=== PATIENT | female | born 1955 | race Caucasian/White ===

== ENCOUNTER 2018-05-15 09:42 | Outpatient (CLI) | payer BC ==
[~2018-05-15] VITALS: Ht 162.6 cm; Wt 53.7 kg
[~2018-05-15 09:42] MED LIST: ALBUTEROL MDI; ALPR0.5T72 PO; ALPRAZOLAM; AMIL5TAB3 PO; AMILORIDE; ASP81TEC PO; ASPIRIN; CALC-80 PO; CALCIUM+D; COUMADIN; DIGO125T; DIGO250T PO; GERITOL COMPLETE; HYDROXYCHLOROQUINE PO; LOVENOX; MULT-608 PO; WRF10T PO; WRF5T PO
[2018-05-15] MEDS ORDERED: ASPI-586 PO (10:18)
[2018-05-15] MEDS ORDERED: CA C1TAB75 PO (10:18)
[2018-05-15] MEDS ORDERED: WARF2TAB PO (10:18)
[2018-05-15] MEDS ORDERED: OXYC1TAB16 PO (10:18)
[2018-05-15] MEDS ORDERED: WARF10TA PO ×2 (10:18)
[2018-05-15] MEDS ORDERED: MULT-351 PO (10:18)
[2018-05-15] MEDS ORDERED: ALPR0.5T7 PO (10:18)
[2018-05-15] MEDS ORDERED: AMIL5TAB3 PO (10:18)
[2018-05-15] MEDS ORDERED: ENOX60DI12 SQ (10:19)
[2018-05-15 10:29] VITALS: BP 112/77
== END 2018-05-15 11:21 | disposition home or self-care (01) ==
LOC: PREOP 09:42
PROVIDERS: ATTEND Orthopaedic Surgery
DX: Z01.818 Encounter for other preprocedural examination (principal)
CPT/HCPCS: 87081

== ENCOUNTER 2018-05-22 09:30 | Inpatient (IN) | payer BC, OTHER ==
--- NOTE | 2018-05-15 15:06 | NUR ---
CALLED AUDREY NEGRETE FOR A LIST OF RECENTLY FILLED MEDICATIONS. I CALLED AND VERIFIED THE COUMADIN DOSE WITH THE PATIENT. AUDREY FILLED: 05-12-18 AMILORIDE 5MG DAILY #30 05-11-18 WARFARIN 10MG DAILY #90 05-04-18 XANAX 0.5MG QID #112 04-18-18 LOVENOX 60MG #20 .52ML Q12 HOURS, START 5 DAYS PRIOR TO SURGERY, HOLD 24 HOURS PRIOR TO SURGERY, RESUME POST UP UNTIL INR REACHES 2.0 04-17-18 PERCOCET 7.5-325 Q6H PRN #112 04-06-18 COUMADIN 2MG 12MG TUTHSA, 14 MG SUMOWEFR (STATES HE DOSE HAS CHANGED TO 10MG ALL DAYS EXCEPT 3 DAYS A WEEK 12 MG. ALSO REPORTED IN PREOP IS ASPIRIN 81MG DAILY, CALCIUM +D CHEW DAILY, MTV DAILY
[2018-05-22] VITALS (8 sets, daily range): BP systolic 74–123; BP diastolic 50–89
[~2018-05-22] VITALS: Ht 162.6 cm; Wt 51.5 kg
[~2018-05-22 09:30] MED LIST changes: +ALPR0.5T7 PO; +ASPI-586 PO; +CA C1TAB75 PO; +ENOX60DI12 SQ; +MULT-351 PO; +OXYC1TAB16 PO; +WARF10TA PO; +WARF2TAB PO
--- OUTSIDE RECORDS SUMMARY | 2018-05-22 10:42 | XMS REPORT | Continuity of Care Document ---
Author Author [facility] Organization [facility] Address Unknown Phone Unavailable Allergies Active Description Code Type Severity Reaction Onset Reported/Identified Relationship to Patient Clinical Status Yes amlodipine [id number] Drug Allergy Unknown "FLU-LIKE SYMPT 12/26/2006 Yes atenolol [id number] Drug Allergy Unknown N/A 12/26/2006 Yes captopril [id number] Drug Allergy Unknown N/A 12/26/2006 Yes carvedilol [id number] Drug Allergy Unknown N/A 12/26/2006 Yes diltiazem [id number] Drug Allergy Unknown N/A 12/26/2006 Yes enalaprilat [id number] Drug Allergy Unknown N/A 12/26/2006 Yes felodipine [id number] Drug Allergy Unknown N/A 12/26/2006 Yes guanfacine [id number] Drug Allergy Unknown N/A 12/26/2006 Yes hydralazine [id number] Drug Allergy Unknown SEVERE BONE CARRINGTON 12/26/2006 Yes hydrochlorothiazide [id number] Drug Allergy Unknown ITCHING, HEART Yes isradipine [id number] Drug Allergy Unknown N/A 12/26/2006 Yes labetalol [id number] Drug Allergy Unknown N/A 12/26/2006 Yes lisinopril [id number] Drug Allergy Unknown N/A 12/26/2006 Yes lorazepam [id number] Drug Allergy Unknown SEVERE DEPRESSI 12/26/2006 Yes losartan [id number] Drug Allergy Unknown N/A 12/26/2006 Yes metoprolol [id number] Drug Allergy Unknown N/A 12/26/2006 Yes moexipril [id number] Drug Allergy Unknown ITCHING, HEART 12/26/2006 Yes nifedipine [id number] Drug Allergy Unknown N/A 12/26/2006 Yes propafenone [id number] Drug Allergy Unknown CHEST PAIN 12/26/2006 Yes ramipril [id number] Drug Allergy Unknown N/A 12/26/2006 Yes spironolactone [id number] Drug Allergy Unknown BONE PAIN 12/26/2006 Yes verapamil [id number] Drug Allergy Unknown N/A 12/26/2006 Yes furosemide [id number] Drug Allergy Mild ITCHING 05/15/2018 Yes monosodium glutamate [id number] Drug Allergy Mild HEADACHE 05/15/2018 Yes TABBY Inhibitors [id number] Drug Allergy Unknown N/A 05/15/2018 Yes adhesive tape [id number] Drug Allergy Unknown N/A 05/15/2018 Yes apixaban [id number] Drug Allergy Unknown N/A 05/15/2018 Yes ciprofloxacin [id number] Drug Allergy Unknown N/A 05/15/2018 Yes clonidine [id number] Drug Allergy Unknown N/A 05/15/2018 Yes isosorbide [id number] Drug Allergy Unknown N/A 05/15/2018 Yes nitroglycerin [id number] Drug Allergy Unknown N/A 05/15/2018 Yes rivaroxaban [id number] Drug Allergy Unknown N/A 05/15/2018 Yes vitamin K2 [id number] Drug Allergy Unknown N/A 05/15/2018 Medications There is no data. Problems Date Dx Coded Attending Type Code Diagnosis Diagnosed By 01/12/2017 ASHLEY GONZALEZ WORKING R07.89 Other chest pain Procedures There is no data. Results Test Result Range Methicillin resistant Staphylococcus aureus (MRSA) screening culture - 10:45 Methicillin resistant Staphylococcus aureus (MRSA) screening culture NEG NRG Encounters ACCT No. Visit Date/Time Discharge Status Pt. Type Provider Facility Loc./Unit Complaint [id number] 01/12/2017 08:37:50 01/12/2017 23:59:59 CLS Outpatient ASHLEY GONZALEZ [facility] FCRCL [id number] 05/15/2018 09:42:00 05/15/2018 11:21:00 DIS Outpatient ISAC GONZALEZ DO [facility] PREOP L3-4 TLIF WITH LEFT POSTERIOR [id number] 05/22/2018 09:30:00 ACT Preadmit ISAC GONZALEZ DO [facility] SURG RCR STENOSIS [id number] 04/03/2018 14:20:00 04/03/2018 23:59:59 CLS Outpatient Zahida Fraser
[2018-05-22] MEDS ORDERED: BACITRACIN 100,000 UNIT/NS 1000 ML POUR BOTTLE IR ONE ×2 (10:45)
[2018-05-22] MEDS ORDERED: CATHETER FLUSH 10 ML SYR IV PRN (11:00)
[2018-05-22] MEDS ORDERED: ceFAZolin 2 GM IV Premixed 50 ML IV ONE (11:00)
[2018-05-22] MEDS: LACTATED RINGERS 1,000 ML IV PRN ×2 (11:15→14:05)
[2018-05-22 11:17] LABS: BASOPHILS % (AUTO) 0 % (0-10); EOSINOPHILS # (AUTO) 0.2 10^3/uL (0.0-0.3); EOSINOPHILS % (AUTO) 3 % (0-10); HEMATOCRIT 39 % (35-52); HEMOGLOBIN 13.1 G/DL (11.5-16.0); LYMPHOCYTES # (AUTO) 1.3 X 10^3 (1.0-4.0); LYMPHOCYTES % (AUTO) 30 % (12-44); MEAN CORPUSCULAR HEMOGLOBIN 32 PG (25-34); MEAN CORPUSCULAR HGB CONC 34 G/DL (32-36); MEAN CORPUSCULAR VOLUME 94 FL (80-99); MEAN PLATELET VOLUME 11.5 FL (7.4-10.4); MONOCYTES # (AUTO) 0.5 X 10^3 (0.0-1.0); MONOCYTES % (AUTO) 11 % (0-12); NEUTROPHILS # (AUTO) 2.5 X 10^3 (1.8-7.8); NEUTROPHILS % (AUTO) 56 % (42-75); PLATELET COUNT 139 10^3/uL (130-400); RED CELL DISTRIBUTION WIDTH 13.4 % (10.0-14.5); WHITE BLOOD COUNT 4.5 10^3/uL (4.3-11.0)
[2018-05-22] MEDS ORDERED: ONDANSETRON 4 MG/2 ML (SDV) Z0FRAN ONE ×2 (11:21→15:36)
[2018-05-22] MEDS ORDERED: FAMOTIDINE 20MG/2ML IV (PEPCID) ONE (11:22)
[2018-05-22 11:27] LABS: PROTHROMBIN TIME PATIENT 12.6 SEC (12.2-14.7)
[2018-05-22] MEDS ORDERED: FAMOTIDINE 20MG/2ML IV (PEPCID) IV ONE (11:30)
[2018-05-22] MEDS ORDERED: ONDANSETRON 4 MG/2 ML (SDV) Z0FRAN IV ONE (11:30)
[2018-05-22] MEDS ORDERED: BUP/EPI 0.5% 1:200,000 (SENSORCAINE) 30 ML VIAL ONE (11:38)
[2018-05-22] MEDS ORDERED: BACITRACIN OINTMENT 28 GM TUBE ONE (11:38)
[2018-05-22] MEDS ORDERED: VANCOMYCIN 1000 MG/VIAL ONE (11:38)
[2018-05-22] MEDS ORDERED: LIDOCAINE PF 2% 5 ML (XYLOCAINE) VIAL ONE (11:51)
[2018-05-22] MEDS ORDERED: SEVOFLURANE (ULTANE) 15 ML INHAL SOLN ONE ×3 (11:51→15:07)
[2018-05-22] MEDS ORDERED: ROCURONIUM 10 MG/ML 5 ML SYRINGE IV ONE (11:51)
[2018-05-22] MEDS ORDERED: proPOfol 200 MG/20 ML (DIPRIVAN) VIAL IV ONE (11:51)
[2018-05-22] MEDS ORDERED: fentaNYL INJECTION 100 MCG/2 ML AMP ONE ×2 (11:53→14:03)
[2018-05-22] MEDS ORDERED: MIDAZOLAM 2 MG/2 ML (VERSED) VIAL ONE (11:53)
[2018-05-22] MEDS ORDERED: DEXMEDETOMIDINE 200 MCG/2 ML (PRECEDEX) VIAL IV ONE (12:07)
[2018-05-22] MEDS ORDERED: NS (IVPB) 100 ML ONE (12:12)
[2018-05-22] MEDS ORDERED: PHENYLEPHRINE 100 MCG/ML 10 ML (ANESTHESIA) SYR ONE ×2 (13:38→15:06)
[2018-05-22] MEDS ORDERED: NEOSTIGMINE 1 MG/ML 5 ML SYRINGE ONE (14:06)
[2018-05-22] MEDS ORDERED: GLYCOPYRROLATE 0.2 MG/ML (ROBINUL) 2 ML VIAL ONE (14:06)
--- NOTE | 2018-05-22 14:40 | Diagnostic Imaging Report ---
Indication: Fluoroscopy during lumbar spine surgery. Fluoroscopy was provided in the OR during lumbar spine surgery. 46 seconds of fluoroscopy was utilized. A single image demonstrates surgical instruments and retractors with pedicles screws in the lower lumbar spine Impression: Fluoroscopy for lumbar spine surgery. Dictated by: Dictated on workstation # [id number]
[2018-05-22] MEDS ORDERED: ACETAMINOPHEN 325 MG TABLET PO PRN (15:00)
[2018-05-22] MEDS ORDERED: ONDANSETRON 4 MG/2 ML (SDV) Z0FRAN IV PRN (15:00)
[2018-05-22] MEDS ORDERED: BISACODYL 10 MG SUPP (DULCOLAX) PR PRN (15:00)
[2018-05-22] MEDS ORDERED: morphine INJ 10 MG/ML 1ML (SYR OR VIAL) ONE (15:13)
[2018-05-22] MEDS ORDERED: fentaNYL INJECTION 100 MCG/2 ML AMP IVP ONE (15:15)
[2018-05-22] MEDS ORDERED: ONDANSETRON 4 MG/2 ML (SDV) Z0FRAN IVP PRN (15:15)
[2018-05-22] MEDS ORDERED: morphine INJ 10 MG/ML 1ML (SYR OR VIAL) IVP ONE (15:15)
[2018-05-22] MEDS ORDERED: NS IV 1000 ML 1,000 ML ONE (16:10)
[2018-05-22] MEDS ORDERED: DEXAMETHASONE 4 MG/ML SDV (DECADRON) ONE (16:11)
[2018-05-22] MEDS ORDERED: METOCLOPRAMIDE INJ 10 MG/2 ML (REGLAN) IVP PRN (16:15)
[2018-05-22] MEDS ORDERED: NS IV 1000 ML 1,000 ML IV SCH (16:15)
[2018-05-22] MEDS ORDERED: DEXAMETHASONE 4 MG/ML SDV (DECADRON) IV ONE (16:15)
--- NOTE | 2018-05-22 17:26 | NUR ---
WILLI GONZALEZ admitted to room OR-1, with an admitting diagnosis of S/P LEFT LUMBAR TRANSFORAMINAL LUMBER INTERBODY FUSION , on 05/22/18 from [facility] via BED, accompanied by [facility] STAFF..WILLI GONZALEZ introduced to surroundings, call light, bed controls, phone, TV, temperature control, lights, meal times, smoking policy, visitor policy, side rail policy, bathrooms and showers. Patient Rights given to patient in the handbook.WILLI GONZALEZ verbalizes understanding that [facility] is not responsible for the loss or damage to any personal effects or valuables that are kept in the patients posession during their hospitalization.
--- NOTE | 2018-05-22 17:27 | NUR ---
[address]VA WITH DR GONZALEZ NOTIFIED OF PT'S LOW BLOOD PRESSURE 79/52 PULSE 75 NEW ORDERS RECEIVED TO START NORMAL SALINE AT 100ML/HR. PT ALSO C/O OF NAUSEA, ORDERS RECEIVED FOR DECADRON 4MG IV X 1 DOSE AND REGLAN 10 MG IV EVERY 6 HRS PRN PAIN. MEDICATIONS OVERRIDE PT NOT APPEARING ON FLOOR CENSUS.
[2018-05-22] MEDS: NS IV 1000 ML 1,000 ML IV SCH (17:54)
[2018-05-22] MEDS: fentaNYL INJECTION 100 MCG/2 ML AMP IVP PRN ×2 (18:08→21:43)
[2018-05-22] MEDS ORDERED: ARTIFICAL TEARS 0.4 ML UNIT DOSE (REFRESH PLUS) OS PRN (18:15)
[2018-05-22] MEDS: ceFAZolin INJECTION 1,000 MG in WATER (STERILE) FOR INJECTION 10 ML IV SCH (18:44)
[2018-05-22] MEDS: ALPRAZolam 0.5 MG (XANAX) TAB PO PRN (19:41)
[2018-05-22] MEDS: oxyCODONE/APAP 7.5-325 MG (PERCOCET 7.5) TABLET PO PRN (19:41)
[2018-05-22] MEDS: SENNOSIDES 8.6 MG (SENOKOT) TAB PO SCH (21:27)
[2018-05-22] MEDS: CYCLOBENZAPRINE 10 MG (FLEXERIL) TAB PO PRN (21:30)
[2018-05-23] VITALS (7 sets, daily range): BP systolic 84–109; BP diastolic 51–67
[2018-05-23] MEDS: oxyCODONE/APAP 7.5-325 MG (PERCOCET 7.5) TABLET PO PRN ×5 (01:34→18:58)
[2018-05-23] MEDS: fentaNYL INJECTION 100 MCG/2 ML AMP IVP PRN ×10 (01:34→21:37)
[2018-05-23] MEDS: NS IV 1000 ML 1,000 ML IV SCH ×3 (02:18→23:05)
[2018-05-23] MEDS: ceFAZolin INJECTION 1,000 MG in WATER (STERILE) FOR INJECTION 10 ML IV SCH ×2 (03:34→10:32)
[2018-05-23 05:22] LABS: MEAN PLATELET VOLUME 12.1 FL (7.4-10.4); RED CELL DISTRIBUTION WIDTH 13.2 % (10.0-14.5); WHITE BLOOD COUNT 9.1 10^3/uL (4.3-11.0)
[2018-05-23 05:25] LABS: HEMOGLOBIN 9.7 G/DL (11.5-16.0)
[2018-05-23 05:39] LABS: ALANINE AMINOTRANSFERASE 129 U/L (0-55); ALBUMIN 3.7 GM/DL (3.2-4.5); ALKALINE PHOSPHATASE 63 U/L (40-136); BILIRUBIN,TOTAL 0.2 MG/DL (0.1-1.0); BUN/CREATININE RATIO 12; CALCIUM 8.5 MG/DL (8.5-10.1); CARBON DIOXIDE 22 MMOL/L (21-32); CHLORIDE 110 MMOL/L (98-107); CREATININE SERUM 0.75 MG/DL (0.60-1.30); GFR ESTIMATED > 60; GLUCOSE 104 MG/DL (70-105); POTASSIUM 4.4 MMOL/L (3.6-5.0); SODIUM 138 MMOL/L (135-145); TOTAL PROTEIN 5.7 GM/DL (6.4-8.2)
--- NOTE | 2018-05-23 05:47 | NUR ---
CONTACTED DR GONZALEZ REGARDING PATIENT HGB FROM 13.1 YTD, TO 9.7 TODAY. HEMOVAC OUTPUT PREVIOUS SHIFT 150 CURRENT SHIFT 100. NO NEW ORDERS AT THIS TIME.
[2018-05-23] MEDS: SENNOSIDES 8.6 MG (SENOKOT) TAB PO SCH ×2 (08:24→21:36)
[2018-05-23] MEDS ORDERED: AMILORIDE HCL 5 MG PO SCH (09:00)
--- NOTE | 2018-05-23 09:02 | Diagnostic Imaging Report ---
INDICATION: Back pain. FINDINGS: There are postsurgical changes of an L4-5 fusion with posterior rods and screws. There is an intervertebral disc spacer at this level. The vertebral body heights are well-maintained. There is no spondylolysis or spondylolisthesis. Surgical drain is in place. IMPRESSION: Stable postsurgical changes of an L4-5 fusion as described. Dictated by: Dictated on workstation # [id number]
--- NOTE | 2018-05-23 09:13 | Consultation ---
HPI History of Present Illness: HPI/Chief Complaint CC: Medical management following spine surgery HPI: This is a 62yoWF patient of [facility] who sees a DRILL OPERATOR and also Dr Kramer at [facility] Hematology who has h/o hypercoagulable state with multiple PE/ DVT's in the past w/IVC in place from 2010 who presents following an uncomplicated spine surgery by Dr Beltran and I am consulted for hypotension. EBL was 500cc and BL in RODNEY drain is 180cc last night so we will give 1 liter NS IVF bolus and check H/H at 1300 and evaluate the need for transfusion. Patient is reporting pain but no dizziness or syncopal episode. Source: patient Exam Limitations: no limitations Date Seen 05/23/18 Attending Physician Jerson Beltran Jay L MD Referring Physician Date of Admission May 22, 2018 at 10:20 Home Medications & Allergies Home Medications Reviewed patient Home Medication Reconciliation performed by pharmacy medication reconciliations commercial tire service technician and/or nursing. Patients Allergies have been reviewed. Allergies Allergies Coded Allergies furosemide (Verified Allergy, Mild, ITCHING, 05/15/18) monosodium glutamate (Verified Allergy, Mild, HEADACHE, 05/15/18) TABBY Inhibitors (Verified Allergy, Unknown, 05/15/18) adhesive tape (Verified Allergy, Unknown, 05/15/18) apixaban (Verified Allergy, Unknown, 05/15/18) atenolol (Verified Allergy, Unknown, 12/26/06) captopril (Verified Allergy, Unknown, 12/26/06) carvedilol (Verified Allergy, Unknown, 12/26/06) ciprofloxacin (Verified Allergy, Unknown, 05/15/18) clonidine (Verified Allergy, Unknown, 05/15/18) diltiazem (Verified Allergy, Unknown, 12/26/06) enalaprilat (Verified Allergy, Unknown, 12/26/06) felodipine (Verified Allergy, Unknown, 12/26/06) guanfacine (Verified Allergy, Unknown, 12/26/06) hydrochlorothiazide (Verified Allergy, Unknown, ITCHING, HEART ARRYTHMIA, 25/09) isosorbide (Verified Allergy, Unknown, 05/15/18) isradipine (Verified Allergy, Unknown, 12/26/06) labetalol (Verified Allergy, Unknown, 12/26/06) lisinopril (Verified Allergy, Unknown, 12/26/06) losartan (Verified Allergy, Unknown, 12/26/06) metoprolol (Verified Allergy, Unknown, 12/26/06) moexipril (Verified Allergy, Unknown, ITCHING, HEART ARRYTHMIA, 12/26/06) nifedipine (Verified Allergy, Unknown, 12/26/06) nitroglycerin (Verified Allergy, Unknown, 05/15/18) propafenone (Verified Allergy, Unknown, CHEST PAIN, 12/26/06) ramipril (Verified Allergy, Unknown, 12/26/06) rivaroxaban (Verified Allergy, Unknown, 05/15/18) verapamil (Verified Allergy, Unknown, 12/26/06) vitamin K2 (Verified Allergy, Unknown, 05/15/18) amlodipine (Verified Adverse Reaction, Unknown, "FLU-LIKE SYMPTOMS--DR SAID NOT TO TAKE", 12/26/06) hydralazine (Verified Adverse Reaction, Unknown, SEVERE BONE PAIN, 12/26/06) lorazepam (Verified Adverse Reaction, Unknown, SEVERE DEPRESSION, 12/26/06) spironolactone (Verified Adverse Reaction, Unknown, BONE PAIN, 12/26/06) Past [id number] Hx Past Med/Social Hx: Reviewed Nursing Past Med/Soc Hx, Reviewed and Corrections made Patient Social History Marrital Status: single Employed/Student: unemployed Alcohol Use: Denies Use Recreational Drug Use: No Smoking Status: Never a Smoker Physical Abuse Screen: No Sexual Abuse: No Recent Foreign Travel: No Contact w/other who traveled: No Recent Hopitalizations: No Recent Infectious Disease Expo: No Immunizations Up To Date Date of Pneumonia Vaccine: Jun 08, 2016 Date of Influenza Vaccine: Dec 07, 2017 Seasonal Allergies Seasonal Allergies: Yes Past Medical History Respiratory: Pulmonary Embolism Cardiac: Deep Vein Thrombosis, High Cholesterol : No Reproductive: No Sexually Transmitted Disease: No HIV/AIDS: No Musculoskeletal: Chronic Back Pain Loss of Vision: Bilateral Hearing Impairment: Denies History of Blood Disorders: Yes (CLOTTING DISORDER) Adverse Reaction to Blood Bell: Yes (HAS HAD BLOOD WITH NO REACTION) Review of Systems Constitutional: see HPI, weakness EENTM: no symptoms reported Respiratory: no symptoms reported Cardiovascular: no symptoms reported Gastrointestinal: no symptoms reported Genitourinary: no symptoms reported Musculoskeletal: back pain Skin: no symptoms reported Psychiatric/Neurological: No Symptoms Reported All Other Systems Reviewed Negative Unless Noted: Yes Physical Exam Physical Exam Vital Signs Vital Signs - First Documented 05/22/18 10:20 Temp 97.0 Pulse 76 Resp 18 B/P (MAP) 123/89 Pulse Ox 100 O2 Delivery Room Air Capillary Refill : Height, Weight, BMI Height: 5'4.00" Weight: 113lbs. 8.0oz. 51.259636xc; 19.5 BMI Method: General Appearance: No Apparent Distress, WD/WN, Chronically ill, Thin Eyes: Bilateral Eye Normal Inspection, Bilateral Eye PERRL HEENT: PERRL/EOMI, Normal ENT Inspection, Pharynx Normal Neck: Full Range of Motion, Normal Inspection, Non Tender, Supple, Carotid Bruit Respiratory: Chest Non Tender, Lungs Clear, Normal Breath Sounds, No Accessory Muscle Use, No Respiratory Distress Cardiovascular: Regular Rate, Rhythm, No Edema, No Gallop, No JVD, No Murmur, Normal Peripheral Pulses Gastrointestinal: Normal Bowel Sounds, No Organomegaly, No Pulsatile Mass, Non Tender, Soft Back: Decreased Range of Motion Extremity: Normal Capillary Refill, Normal Inspection, Normal Range of Motion, Non Tender, No Calf Tenderness, No Pedal Edema Neurologic/Psychiatric: Alert, Oriented x3, No Motor/Sensory Deficits, Normal Mood/Affect Skin: Normal Color, Warm/Dry Lymphatic: No Adenopathy Results Results/Procedures Labs Laboratory Tests 05/22/18 11:03 05/23/18 05:15 Patient resulted labs reviewed. Assessment/Plan Assessment and Plan Assess & Plan/Chief Complaint Assessment: s/p uncomplicated spine surgery per Dr Beltran POD # 1 Hypotension due to hypovolemia Acute blood loss anemia Antiphospholipid hypercoagulable state maintained on Coumadin and has IVF filter placed in 2010 with h/o 3 PE's and DVT's even while on Coumadin Multiple med allergies Plan: IVF bolus 1 liter Check H/H at 1300 may need transfusion this afternoon if hypotension persists Pain control Anticoagulation per spine surgery Diagnosis/Problems Diagnosis/Problems (1) Hypotension Status: Acute Qualifiers: Hypotension type: hypotension due to hypovolemia Qualified Codes: I95.89 - Other hypotension; E86.1 - Hypovolemia (2) Lumbar spinal stenosis Status: Acute Qualifiers: Neurogenic claudication status: unspecified Qualified Codes: M48.061 - Spinal stenosis, lumbar region without neurogenic claudication (3) Acute blood loss anemia Status: Acute (4) Antiphospholipid antibody syndrome Status: Chronic (5) History of pulmonary embolus (PE) Status: Chronic (6) History of DVT (deep vein thrombosis) Status: Chronic (7) Presence of IVC filter Status: Chronic Clinical Quality Measures DVT/VTE Risk/Contraindication: Risk Factor Score Per Nursin RFS Level Per Nursing on Admit: 4+=Very High CAMRYN BRUCE DO May 23, 2018 09:13
[2018-05-23] MEDS ORDERED: NS IV 1000 ML 1,000 ML IV SCH (09:30)
--- NOTE | 2018-05-23 09:31 | Physical Therapy Evaluation ---
PT Evaluation-General Medical Diagnosis Admission Date May 22, 2018 at 10:20 Medical Diagnosis: stenosis Onset Date: May 22, 2018 Therapy Diagnosis Therapy Diagnosis: debility Height/Weight Height (Feet): 5 Height (Inches): 4.00 Weight (Pounds): 113 Weight (Ounces): 8.0 Precautions Precautions/Isolations: Standard Precautions Weight Bear Status Right Lower Extremity: Right Full Weight Bearing Left Lower Extremity: Left Full Weight Bearing Referral Physician: Devin Reason for Referral: Evaluation/Treatment Medical History Pertinent Medical History: Smoking Additional Medical History L5-S1 fusion prior Current History s/p Left lumbar transforaminal lumbar interbody fusion Reviewed History: Yes Social History Home: Single Level Current Living Status: Spouse Prior/Core FIM Prior Level of Function Therapy Code Descriptions/Definitions Functional [place] Measure: 0=Not Assessed/NA 4=Minimal Assistance 1=Total Assistance 5=Supervision or Setup 2=Maximal Assistance 6=Modified [place] 3=Moderate Assistance 7=Complete [place] Therapy Quality Codes: 6 Independent with activity with or without an assistive device 5 Patient requires set up or clean up by helper. Patient completes activity by themselves 4 Supervision or touching assist (CGA). Loda provide cues , steadying assist 3 The helper provides less than half the effort to complete the activity 2 The helper provides more than half the effort to complete the activity 1 Dependent. The helper does all the effort to complete an activity 7 Patient refused to complete or attempt activity 9 The patient did not perform the activity before the current illness or injury 88 Not attempted due to Medical conditions or safety concerns Functional Abilities and Goals: Independent: Patient completed the activities by him/herself, with or without an assistive device, with no assistance from a helper. Needed Some Help: Patient needed partial assistance from another person to complete activities. Dependent: A helper completed the activities for the patient. Unknown: Not Applicable: Bed Mobility: 7 Transfers (B,C,W/C) (FIM): 7 Gait: 7 Stairs: 7 Indoor Mobility (Ambulation): Independent Stairs: Independent Prior Devices Use: None PT Evaluation-Current Subjective Patient is very agreeable to participate with PT. Patient has her own back brace and dons it independently. Pain Numeric Pain Scale: 5-Moderate Pain Location: Lower Location Body Site: Back Pain Description: Acute Objective Patient Orientation: Normal For Age Problem Solving: Good Attachments: Drains, IV ROM/Strength ROM Lower Extremities bilateral LE WFL Strength Lower Extremities 5/5 grossly bilateral LE Integumentary/Posture Integumentary refer to nursing notes Bowel Incontinence: No Bladder Incontinence: No Posture WFL Neuromuscular (Tone, Coordination, Reflexes) grossly intact with all Sensory Vision: Wears Glasses Hearing: Functional Sensation Right Lower Extremit: Intact Sensation Left Lower Extremity: Intact Transfers Therapy Code Descriptions/Definitions Functional [place] Measure: 0=Not Assessed/NA 4=Minimal Assistance 1=Total Assistance 5=Supervision or Setup 2=Maximal Assistance 6=Modified [place] 3=Moderate Assistance 7=Complete [place] Transfers (B, C, W/C) (FIM): 6 Scootin Rollin Supine to/from Sit: 6 Sit to/from Stand: 6 log roll bed mobility to attain sitting EOB without difficulty Gait Mode of Locomotion: Walk Anticipated Mode of Locomotion: Walk Gait (FIM): 6 Distance (FIM): 3=150 ft Distance: 1000' Gait Level of Assist: 6 Gait Assistive Device: FWW Comments/Gait Description Patient has been instructed to ambulate PRN in hallway with or without use of FWW independently Balance Sitting Static: Normal Sitting Dynamic: Normal Standing Static: Normal Standing Dynamic: Normal Assessment/Needs 62 y.o. active female, is currently at independent to modified independent [facility] with all gross motor skills and does not require skilled therapy intervention. Patient has been instructed to ambulate PRN in hallway with or without use of FWW. RN notified. Rehab Potential: Good PT Plan Treatment/Plan Treatment Plan: Discontinue PT, goals met Treatment Plan: Other Treatment Duration: May 23, 2018 Frequency: 1 time per week Estimated Hrs Per Day: .25 hour per day Patient and/or Family Agrees t: Yes Discharge Recommendations Therapy D/C Recommendations: Home w/ Family Support Time/GCodes Time In: 842 Time Out: 855 Total Billed Treatment Time: 13 Total Billed Treatment 1 visit EVLowC 13 min ALEXANDRIA OSMAN PT May 23, 2018 09:31
--- NOTE | 2018-05-23 10:23 | NUR ---
Pt s Gnosticist. Dental Equipment Repairer provided prayer and Communion.
[2018-05-23] MEDS: ALPRAZolam 0.5 MG (XANAX) TAB PO PRN ×2 (10:56→16:50)
[2018-05-23] MEDS: CYCLOBENZAPRINE 10 MG (FLEXERIL) TAB PO PRN ×2 (11:53→16:50)
--- NOTE | 2018-05-23 12:36 | Anesthesia-General Post-Op ---
General Patient Condition Mental Status/LOC: Same as Preop Cardiovascular: Satisfactory Nausea/Vomiting: Absent Respiratory: Satisfactory Pain: Uncontrolled Complications: Absent Post Op Complications Complications None Follow Up Care/Instructions Patient Instructions None needed. Anesthesia/Patient Condition Patient Condition Patient is doing well, C/O post-op pain which is expected, stable vital signs, no apparent adverse anesthesia problems. ALCON SERRANO DO May 23, 2018 12:36
--- NOTE | 2018-05-23 12:43 | OPERATIVE REPORT ---
DATE OF SERVICE: 05/22/2018 SURGEON: Isac Beltran DO PLANT PROTECTION GUARD: REKHA Badillo. This is a medically necessary procedure. Assistance was necessary for retraction of vital neurovascular structures. Without an public health training assistant, the procedure would not be possible. PREOPERATIVE DIAGNOSES: 1. Lumbar spinal stenosis (bony, foraminal, subluxation). 2. Lumbar spondylolisthesis, L3-L4. 3. Neurogenic claudication. POSTOPERATIVE DIAGNOSES: 1. Lumbar spinal stenosis (bony, foraminal, subluxation). 2. Lumbar spondylolisthesis, L3-L4. 3. Neurogenic claudication. PROCEDURES PERFORMED: 1. L3-4 transforaminal lumbar interbody fusion. 2. Application of titanium cage L3-L4. 3. Application of posterior instrumentation, L3-L4. 4. Posterior spinal fusion L3-L4. 5. Bilateral laminectomy with complete facetectomies and foraminotomies L3-L4. 6. Use of human Allograft for spine. 7. Use of local bone autograft. COMPLICATIONS: None. SPECIMEN SENT: None. ESTIMATED BLOOD LOSS: See anesthesia records. DRAINS PLACED: Subfascial Hemovac. ANESTHESIA: General endotracheal tube anesthesia with local anesthetic. SPECIMEN SENT: None. HISTORY OF PRESENT ILLNESS: The patient is a very pleasant 62-year-old female with a history of prior lumbar laminectomy at L4-L5. She presented to me with neurogenic claudication and spinal stenosis on MRI at the L3-L4 level. She also had instability at that level. She wished to proceed with operative intervention as she had failed all forms of conservative efforts. OPERATION: The patient was identified by name on wrist band in the preoperative holding area. Her operative site was signed, consent was signed. SCDs were placed. Dermabond was hooked up and antibiotics were started. She was taken to the operating room theater and placed under general endotracheal tube anesthesia and then transferred to the operating room table in the prone position. She was prepped and draped in usual sterile fashion. Formal timeout was conducted. At this point, x-ray was then brought in and I marked out my incision. I made a midline lumbar incision performed bilateral subperiosteal paraspinal muscular approach exposing the L3-L4 level. This was quite difficult due to prior surgery and scar tissue. After the exposure under lateral x-ray, placed pedicle screws bilaterally in L3 and L4. I used EMG neuro monitoring to test the location of these screws and they were in a safe position. In addition, final AP and lateral x-ray demonstrated a good position of the screws. At this point, I placed distraction across the L3-L4 disk space. I used a Leksell rongeur to remove the spinous processes and the high speed bur and Kerrison rongeurs to perform a complete facetectomy. At this point, I retracted the thecal sac medially exposing the disk space. I then performed an annulotomy followed by complete diskectomy. I then sized and chose the appropriate expandable titanium Medtronic cage. I packed with human allograft and I seated it to the L3-L4 disk space. I expanded that cage as much as I safely could, I then locked the cage. At this point, I extended my laminectomy bilaterally. Once I was happy with the neural decompression, I placed a fox on the left, fox on the right. I placed set screws were final tightened the set screws. I irrigated the wound thoroughly at this point with antibiotic enhanced irrigation, I decorticated the remaining posterior bony elements and I packed a mixture of human allograft and local bone autograft in the left and right gutter to promote posterior spinal fusion. I maintained hemostasis at this point and placed a subfascial Hemovac drain. I closed the wound utilizing 0 Vicryl followed by 2-0 Vicryl followed by running 3-0 subcuticular stitches. I applied dressings. We took the patient in supine position to the PACU where she awoke without incident. She tolerated the procedure very well. The plan at this time is to admit the patient for IV antibiotics, IV pain control, postoperative monitoring. I will plan to get her out of bed on postop day #1 with the brace on. Please note that instrumentation utilized in this procedure was Medtronic for everything also noted. The neuro monitoring was stable throughout the procedure. Job ID: [id number] DocumentID: [id number] Dictated Date: 05/23/2018 07:38:35 Evaporator Repairer Date: 05/23/2018 12:43:11 Dictated By: ISAC BELTRAN DO
[2018-05-23 13:28] LABS: HEMOGLOBIN 8.6 G/DL (11.5-16.0)
--- NOTE | 2018-05-23 22:11 | Progress Note (SOAP) ---
Subjective Date Seen by a Provider: May 23, 2018 Time Seen by a Provider: 12:30 Subjective/Events-last exam POD #1 s/p L3-4 TLIF with laminectomy and PSIF. Reports significant back pain. Nurse called last night with borderline hypotension. Fluids continued. Nurse called Dr Beltran this morning about hgb level. Dr Lawrence has been consulted. Patient has significant hx of DVT/PE. IVC filter is in place. Review of Systems General: No Chills, No Night Sweats Pulmonary: No Dyspnea, No Pleuritic Chest Pain Cardiovascular: No: Chest Pain, Paroxysmal Noc. Dyspnea Gastrointestinal: Nausea Musculoskeletal: back pain Neurological: No: Weakness, Numbness Objective Exam Vital Signs Date Time Temp Pulse Resp B/P (MAP) Pulse Ox O2 Delivery O2 Flow Rate FiO2 05/23/18 21:34 98/59 (72) 05/23/18 19:30 97.6 92 18 89/55 (66) 97 Room Air 05/23/18 16:50 99.1 91 18 103/67 (79) 97 Room Air 05/23/18 12:00 88 16 05/23/18 11:28 98.6 94 16 109/63 (78) 94 Room Air 05/23/18 09:00 96 Room Air 05/23/18 08:00 99.2 73 18 84/52 (63) 93 Room Air 05/23/18 04:00 97.4 88 18 87/51 (63) 91 Room Air 05/22/18 23:32 98.3 64 14 84/59 (67) 94 Room Air I & O 05/23/18 06:59 Intake Total 2490 ml Output Total 770 ml Balance 1720 ml Capillary Refill : General Appearance: No Apparent Distress Neck: No JVD Respiratory: No Accessory Muscle Use, No Respiratory Distress Cardiovascular: No JVD Extremity: No Calf Tenderness, No Pedal Edema Neurologic/Psychiatric: Alert, Oriented x3, No Motor/Sensory Deficits, Normal Mood/Affect Skin: Normal Color, Warm/Dry Results Lab Laboratory Tests 05/23/18 05:15: White Blood Count 9.1, Red Blood Count 3.06L, Hemoglobin 9.7#L, Hematocrit 30L, Mean Corpuscular Volume 96, Mean Corpuscular Hemoglobin 32, Mean Corpuscular Hemoglobin Concent 33, Red Cell Distribution Width 13.2, Platelet Count 115L, Mean Platelet Volume 12.1H, Sodium Level 138, Potassium Level 4.4, Chloride Level 110H, Carbon Dioxide Level 22, Anion Gap 6, Blood Urea Nitrogen 9, Creatinine 0.75, Estimat Glomerular Filtration Rate > 60, BUN/Creatinine Ratio 12, Glucose Level 104, Calcium Level 8.5, Corrected Calcium 8.7, Total Bilirubin 0.2, Aspartate Amino Transf (AST/SGOT) 93H, Alanine Aminotransferase ( ALT/SGPT) 129H, Alkaline Phosphatase 63, Total Protein 5.7L, Albumin 3.7 05/23/18 13:20: Hemoglobin 8.6L, Hematocrit 27L Assessment/Plan Assessment/Plan Assess & Plan/Chief Complaint pod #1 s/p tlif plan lumbar x-ray reviewed brace when out of bed incentive spirometry calf scd for dvt prophylaxis continue lumbar drain pain control monitor labs Clinical Quality Measures DVT/VTE Risk/Contraindication: Risk Factor Score Per Nursin RFS Level Per Nursing on Admit: 4+=Very High JEFFERSON GARCIA May 23, 2018 22:11
[2018-05-24] MEDS: fentaNYL INJECTION 100 MCG/2 ML AMP IVP PRN ×6 (00:52→23:29)
[2018-05-24 03:29] VITALS: BP 90/58
[2018-05-24 04:28] LABS: BASOPHILS % (AUTO) 0 % (0-10); EOSINOPHILS # (AUTO) 0.1 10^3/uL (0.0-0.3); EOSINOPHILS % (AUTO) 2 % (0-10); HEMATOCRIT 26 % (35-52); HEMOGLOBIN 8.3 G/DL (11.5-16.0); LYMPHOCYTES # (AUTO) 1.4 X 10^3 (1.0-4.0); LYMPHOCYTES % (AUTO) 18 % (12-44); MEAN CORPUSCULAR HEMOGLOBIN 31 PG (25-34); MEAN CORPUSCULAR HGB CONC 32 G/DL (32-36); MEAN CORPUSCULAR VOLUME 97 FL (80-99); MEAN PLATELET VOLUME 12.6 FL (7.4-10.4); MONOCYTES # (AUTO) 0.9 X 10^3 (0.0-1.0); MONOCYTES % (AUTO) 12 % (0-12); NEUTROPHILS # (AUTO) 5.4 X 10^3 (1.8-7.8); NEUTROPHILS % (AUTO) 68 % (42-75); PLATELET COUNT 95 10^3/uL (130-400); RED CELL DISTRIBUTION WIDTH 13.6 % (10.0-14.5); WHITE BLOOD COUNT 7.9 10^3/uL (4.3-11.0)
--- NOTE | 2018-05-24 06:32 | Progress Note (SOAP) ---
Subjective Date Seen by a Provider: May 24, 2018 Time Seen by a Provider: 05:00 Subjective/Events-last exam POD #1, s/p L3-4 TLIF, PSF with laminectomy Patient resting comfortably upon entering room, but once awoken, complains of severe pain in her back Hypotension persists Hgb 8.3 this a.m. Denies dizziness, dyspnea, or light headedness Denies lower extremity pain or paresthesia Review of Systems General: No Chills Pulmonary: No Dyspnea, No Cough Cardiovascular: No: Chest Pain Gastrointestinal: No: Nausea, Vomiting, Abdominal Pain Musculoskeletal: back pain; No: neck pain, leg pain Neurological: No: Weakness, Numbness, Confusion Objective Exam Vital Signs Date Time Temp Pulse Resp B/P (MAP) Pulse Ox O2 Delivery O2 Flow Rate FiO2 05/24/18 03:29 98.2 96 20 90/58 (69) 96 Room Air 05/23/18 23:10 98.0 93 18 93/57 (69) 96 Room Air 05/23/18 21:34 98/59 (72) 05/23/18 21:00 Room Air 05/23/18 19:30 97.6 92 18 89/55 (66) 97 Room Air 05/23/18 16:50 99.1 91 18 103/67 (79) 97 Room Air 05/23/18 12:00 88 16 05/23/18 11:28 98.6 94 16 109/63 (78) 94 Room Air 05/23/18 09:00 96 Room Air 05/23/18 08:00 99.2 73 18 84/52 (63) 93 Room Air I & O 05/24/18 07:00 Intake Total 2490 ml Output Total 1830 ml Balance 660 ml Capillary Refill : General Appearance: No Apparent Distress Neck: Non Tender Respiratory: No Accessory Muscle Use Cardiovascular: Normal Peripheral Pulses Gastrointestinal: non tender, soft Extremity: Normal Capillary Refill, Normal Inspection, Normal Range of Motion, Non Tender, No Calf Tenderness, No Pedal Edema Neurologic/Psychiatric: Alert, Oriented x3, No Motor/Sensory Deficits, Normal Mood/Affect, medical attendant II-XII Norm as Tested Skin: Other (Dressing CDI) Results Lab Laboratory Tests 05/23/18 13:20: Hemoglobin 8.6L, Hematocrit 27L 05/24/18 04:00: Hemoglobin 8.3L, Hematocrit 26L, White Blood Count 7.9, Red Blood Count 2.70L, Mean Corpuscular Volume 97, Mean Corpuscular Hemoglobin 31, Mean Corpuscular Hemoglobin Concent 32, Red Cell Distribution Width 13.6, Platelet Count 95L, Mean Platelet Volume 12.6H, Neutrophils (%) (Auto) 68, Lymphocytes (%) (Auto) 18 , Monocytes (%) (Auto) 12, Eosinophils (%) (Auto) 2, Basophils (%) (Auto) 0, Neutrophils # (Auto) 5.4, Lymphocytes # (Auto) 1.4, Monocytes # (Auto) 0.9, Eosinophils # (Auto) 0.1, Basophils # (Auto) 0.0 Assessment/Plan Assessment/Plan Assess & Plan/Chief Complaint Lumbar stenosis with radiculopathy S/P L3-4 TLIF, PSF with laminectomy Hypotension Acute blood loss anemia (post-operative) Chronic opioid dependancy Continue to monitor drain output. Drain will remain in place for an extended period due to the patient's need to be on therapeutic Lovenox Patient may require transfusion. I discussed her opioid tolerance and reasonable expectations of pain control I also discussed the possible benefits of a SNF or Rehab, upon discharge. She was adamantly opposed to this Clinical Quality Measures DVT/VTE Risk/Contraindication: Risk Factor Score Per Nursin RFS Level Per Nursing on Admit: 4+=Very High BRIANDA DAVIS May 24, 2018 06:32
[2018-05-24 08:00] VITALS: BP 110/66
[2018-05-24] MEDS: SENNOSIDES 8.6 MG (SENOKOT) TAB PO SCH ×2 (08:52→20:42)
[2018-05-24] MEDS: NS IV 1000 ML 1,000 ML IV SCH ×2 (08:55→17:47)
--- NOTE | 2018-05-24 09:11 | Progress Note-Hospitalist ---
Subjective HPI/CC On Admission Date Seen by Provider: May 24, 2018 Time Seen by Provider: 09:40 CC: Medical management following spine surgery HPI: This is a 62yoWF patient of [facility] who sees a STANDARD MACHINE STITCHER and also Dr Kramer at [facility] who has h/o hypercoagulable state with multiple PE/ DVT's in the past w/IVC in place from 2010 who presents following an uncomplicated spine surgery by Dr Beltran and I am consulted for hypotension. EBL was 500cc and BL in RODNEY drain is 180cc last night so we will give 1 liter NS IVF bolus and check H/H at 1300 and evaluate the need for transfusion. Patient is reporting pain but no dizziness or syncopal episode. Subjective/Events-last exam Pt doing well today. Hgb 8.3. On Lovenox therapeutic dose for bridge. I did speak with Dr. Kramer in depth, [facility] who sees her on a regular basis and had no concerns if she required a couple of units of blood since that would not cause any type of hypercoagulable status and high risk for clots for this Pt. Review of Systems General: Fatigue Musculoskeletal: back pain Objective Exam Vital Signs Vital Signs Date Time Temp Pulse Resp B/P (MAP) Pulse Ox O2 Delivery O2 Flow Rate FiO2 05/24/18 20:00 97.7 96 20 105/72 (83) 99 Room Air Capillary Refill : General Appearance: No Apparent Distress HEENT: PERRL/EOMI, Normal ENT Inspection, Pharynx Normal Neck: Non Tender Respiratory: No Accessory Muscle Use Cardiovascular: Normal Peripheral Pulses Gastrointestinal: Normal Bowel Sounds, No Organomegaly, No Pulsatile Mass, Non Tender, Soft Back: Decreased Range of Motion Extremity: Normal Capillary Refill, Normal Inspection, Normal Range of Motion, Non Tender, No Calf Tenderness, No Pedal Edema Neurologic/Psychiatric: Alert, Oriented x3, No Motor/Sensory Deficits, Normal Mood/Affect, airways control specialist II-XII Norm as Tested Skin: Other (Dressing CDI) Lymphatic: No Adenopathy Results/Procedures Lab Laboratory Tests 05/24/18 04:00 Patient resulted labs reviewed. Assessment/Plan Assessment and Plan Assess & Plan/Chief Complaint Assessment: s/p uncomplicated spine surgery per Dr Beltran POD # 2 Hypotension due to hypovolemia resolved with IVF Acute blood loss anemia Antiphospholipid hypercoagulable state maintained on Coumadin and has IVF filter placed in 2010 with h/o 3 PE's and DVT's even while on Coumadin Multiple med allergies Plan: Supportive care Refuse IRF Pain control Anticoagulation per spine surgery Diagnosis/Problems Diagnosis/Problems (1) Hypotension Status: Resolved Qualifiers: Hypotension type: hypotension due to hypovolemia Qualified Codes: I95.89 - Other hypotension; E86.1 - Hypovolemia Resolution Date/Time: 05/24/18 @ 20:45 (2) Lumbar spinal stenosis Status: Acute Qualifiers: Neurogenic claudication status: unspecified Qualified Codes: M48.061 - Spinal stenosis, lumbar region without neurogenic claudication (3) Acute blood loss anemia Status: Acute (4) Antiphospholipid antibody syndrome Status: Chronic (5) History of pulmonary embolus (PE) Status: Chronic (6) History of DVT (deep vein thrombosis) Status: Chronic (7) Presence of IVC filter Status: Chronic Clinical Quality Measures DVT/VTE Risk/Contraindication: Risk Factor Score Per Nursin RFS Level Per Nursing on Admit: 4+=Very High CAMRYN BRUCE DO May 24, 2018 09:11
[2018-05-24 12:00] VITALS: BP 124/76
[2018-05-24] MEDS: ALPRAZolam 0.5 MG (XANAX) TAB PO PRN ×2 (12:11→17:46)
[2018-05-24] MEDS: oxyCODONE/APAP 7.5-325 MG (PERCOCET 7.5) TABLET PO PRN ×2 (12:12→17:41)
[2018-05-24 16:00] VITALS: BP 115/77
[2018-05-24 20:00] VITALS: BP 105/72
[2018-05-24 23:30] VITALS: BP 102/60
[2018-05-25] MEDS: NS IV 1000 ML 1,000 ML IV SCH (03:59)
[2018-05-25 04:04] VITALS: BP 123/84
[2018-05-25] MEDS: CYCLOBENZAPRINE 10 MG (FLEXERIL) TAB PO PRN (04:35)
[2018-05-25 08:00] VITALS: BP 140/83
[2018-05-25] MEDS: oxyCODONE/APAP 7.5-325 MG (PERCOCET 7.5) TABLET PO PRN ×2 (08:25→13:56)
[2018-05-25] MEDS: SENNOSIDES 8.6 MG (SENOKOT) TAB PO SCH (08:25)
[2018-05-25] MEDS: ALPRAZolam 0.5 MG (XANAX) TAB PO PRN (08:25)
--- NOTE | 2018-05-25 09:34 | Progress Note-Hospitalist ---
Subjective HPI/CC On Admission Date Seen by Provider: May 25, 2018 Time Seen by Provider: 08:30 CC: Medical management following spine surgery HPI: This is a 62yoWF patient of [facility] who sees a HUMANITIES INSTRUCTOR and also Dr Kramer at [facility] who has h/o hypercoagulable state with multiple PE/ DVT's in the past w/IVC in place from 2010 who presents following an uncomplicated spine surgery by Dr Beltran and I am consulted for hypotension. EBL was 500cc and BL in RODNEY drain is 180cc last night so we will give 1 liter NS IVF bolus and check H/H at 1300 and evaluate the need for transfusion. Patient is reporting pain but no dizziness or syncopal episode. Subjective/Events-last exam Pt improved today. No BM but she feels like its coming so will initiate a suppository if needed. Checking CBC and a CMP now. Reaching out to spine surgery service to evaluate the plan for Coumadin. Maintained on Lovenox. Drain may have too much output for discharge. Review of Systems Musculoskeletal: back pain Objective Exam Vital Signs Vital Signs Date Time Temp Pulse Resp B/P (MAP) Pulse Ox O2 Delivery O2 Flow Rate FiO2 05/25/18 12:00 98.2 90 18 112/72 (85) 97 Room Air Capillary Refill : General Appearance: No Apparent Distress HEENT: PERRL/EOMI, Normal ENT Inspection, Pharynx Normal Neck: Non Tender Respiratory: No Accessory Muscle Use Cardiovascular: Normal Peripheral Pulses Gastrointestinal: Normal Bowel Sounds, No Organomegaly, No Pulsatile Mass, Non Tender, Soft Back: Decreased Range of Motion Extremity: Normal Capillary Refill, Normal Inspection, Normal Range of Motion, Non Tender, No Calf Tenderness, No Pedal Edema Neurologic/Psychiatric: Alert, Oriented x3, No Motor/Sensory Deficits, Normal Mood/Affect, road grader operator II-XII Norm as Tested Skin: Other (Dressing CDI) Lymphatic: No Adenopathy Results/Procedures Lab Laboratory Tests 05/25/18 09:50 Patient resulted labs reviewed. Assessment/Plan Assessment and Plan Assess & Plan/Chief Complaint Assessment: s/p uncomplicated spine surgery per Dr Beltran POD # 3 Hypotension due to hypovolemia resolved with IVF Acute blood loss anemia Antiphospholipid hypercoagulable state maintained on Coumadin and has IVF filter placed in 2010 with h/o 3 PE's and DVT's even while on Coumadin Multiple med allergies Plan: Supportive care Refuse IRF Pain control Anticoagulation per spine surgery Diagnosis/Problems Diagnosis/Problems (1) Hypotension Status: Resolved Qualifiers: Hypotension type: hypotension due to hypovolemia Qualified Codes: I95.89 - Other hypotension; E86.1 - Hypovolemia Resolution Date/Time: 05/24/18 @ 20:45 (2) Lumbar spinal stenosis Status: Acute Qualifiers: Neurogenic claudication status: unspecified Qualified Codes: M48.061 - Spinal stenosis, lumbar region without neurogenic claudication (3) Acute blood loss anemia Status: Acute (4) Antiphospholipid antibody syndrome Status: Chronic (5) History of pulmonary embolus (PE) Status: Chronic (6) History of DVT (deep vein thrombosis) Status: Chronic (7) Presence of IVC filter Status: Chronic Clinical Quality Measures DVT/VTE Risk/Contraindication: Risk Factor Score Per Nursin RFS Level Per Nursing on Admit: 4+=Very High CAMRYN BRUCE DO May 25, 2018 09:34
[2018-05-25 09:59] LABS: BASOPHILS % (AUTO) 0 % (0-10); EOSINOPHILS # (AUTO) 0.1 10^3/uL (0.0-0.3); EOSINOPHILS % (AUTO) 2 % (0-10); HEMATOCRIT 25 % (35-52); HEMOGLOBIN 8.1 G/DL (11.5-16.0); LYMPHOCYTES # (AUTO) 0.9 X 10^3 (1.0-4.0); LYMPHOCYTES % (AUTO) 14 % (12-44); MEAN CORPUSCULAR HEMOGLOBIN 31 PG (25-34); MEAN CORPUSCULAR HGB CONC 33 G/DL (32-36); MEAN CORPUSCULAR VOLUME 96 FL (80-99); MEAN PLATELET VOLUME 12.4 FL (7.4-10.4); MONOCYTES # (AUTO) 0.7 X 10^3 (0.0-1.0); MONOCYTES % (AUTO) 11 % (0-12); NEUTROPHILS # (AUTO) 4.5 X 10^3 (1.8-7.8); NEUTROPHILS % (AUTO) 73 % (42-75); PLATELET COUNT 95 10^3/uL (130-400); RED CELL DISTRIBUTION WIDTH 13.3 % (10.0-14.5); WHITE BLOOD COUNT 6.1 10^3/uL (4.3-11.0)
[2018-05-25 10:13] LABS: INR 1.1 (0.8-1.4); PROTHROMBIN TIME PATIENT 13.8 SEC (12.2-14.7)
[2018-05-25 10:20] LABS: ALANINE AMINOTRANSFERASE 57 U/L (0-55); ALBUMIN 3.3 GM/DL (3.2-4.5); ALKALINE PHOSPHATASE 61 U/L (40-136); BILIRUBIN,TOTAL 0.2 MG/DL (0.1-1.0); BUN/CREATININE RATIO 8; CALCIUM 8.3 MG/DL (8.5-10.1); CARBON DIOXIDE 26 MMOL/L (21-32); CHLORIDE 109 MMOL/L (98-107); GFR ESTIMATED > 60; GLUCOSE 101 MG/DL (70-105); POTASSIUM 3.5 MMOL/L (3.6-5.0); SODIUM 140 MMOL/L (135-145); TOTAL PROTEIN 5.4 GM/DL (6.4-8.2)
[2018-05-25] MEDS: fentaNYL INJECTION 100 MCG/2 ML AMP IVP PRN ×2 (10:55→13:55)
[2018-05-25] MEDS ORDERED: OXYC1TAB12 PO (11:59)
[2018-05-25 12:00] VITALS: BP 112/72
--- NOTE | 2018-05-25 12:08 | Discharge Inst-Simple/Standard ---
Discharge Inst-Standard Discharge Medications New, Converted or Re-Newed RX: RX on Chart Patient Instructions/Follow Up Plan of Care/Instructions/FU: follow up in clinic in 2 weeks dont bend lift twist push or pull back brace when ambulatory keep incision covered clean and dry continue lovenox, resume coumadin and aspirin on 05/27/2018, continue lovenox for 5 days after a target INR is reached of 2 Activity as Tolerated: No Discharge Diet: Regular Diet Return to The Hospital For: chest pain, shortness of breath new onsent numbness or weakness or issues with bowel or bladder function fever chills JEFFERSON GARCIA May 25, 2018 12:05
[2018-05-25] MEDS ORDERED: ENOX60DI12 SQ (12:16)
--- NOTE | 2018-05-25 12:21 | Discharge Summary ---
Diagnosis/Chief Complaint Date of Admission May 22, 2018 at 10:20 Date of Discharge 05/25/18 Admission Diagnosis Admission Diagnosis lumbar stenosis Discharge Diagnosis same Reason Hospital Visit laminectomy/tlif/psif Discharge Summary Hospital Course Was the Problem List Reviewed?: Yes Hospital Course Patient admitted for TLIF/Laminectomy/PSIF. Tolerated surgery well. Has medical hx of dvt/PE and is on anticoagulation. She is bridged with lovenox and will continue lovenox 5 days past a return of INR to 2.0. Has been cousneled on s/s of cauda quina syndrome and epidural hematoma with anticoagulation. Pain is tolerable and has progressed with PT. Will be dismissed home on POD #3 Labs Laboratory Tests 05/23/18 05:15: Red Blood Count 3.06L, Hemoglobin 9.7#L, Hematocrit 30L, Platelet Count 115L, Mean Platelet Volume 12.1H, Chloride Level 110H, Aspartate Amino Transf (AST/ SGOT) 93H, Alanine Aminotransferase (ALT/SGPT) 129H, Total Protein 5.7L 05/23/18 13:20: Hemoglobin 8.6L, Hematocrit 27L 05/24/18 04:00: Red Blood Count 2.70L, Hemoglobin 8.3L, Hematocrit 26L, Platelet Count 95L, Mean Platelet Volume 12.6H 05/25/18 09:50: Red Blood Count 2.58L, Hemoglobin 8.1L, Hematocrit 25L, Platelet Count 95L, Mean Platelet Volume 12.4H, Chloride Level 109H, Aspartate Amino Transf (AST/ SGOT) 43H, Alanine Aminotransferase (ALT/SGPT) 57H, Total Protein 5.4L, Lymphocytes # (Auto) 0.9L, Potassium Level 3.5L, Blood Urea Nitrogen 5L, Calcium Level 8.3L Procedures None. Discharge Physical Examination Allergies: Coded Allergies: furosemide (Verified Allergy, Mild, ITCHING, 05/15/18) monosodium glutamate (Verified Allergy, Mild, HEADACHE, 05/15/18) TABBY Inhibitors (Verified Allergy, Unknown, 05/15/18) adhesive tape (Verified Allergy, Unknown, 05/15/18) apixaban (Verified Allergy, Unknown, 05/15/18) atenolol (Verified Allergy, Unknown, 12/26/06) captopril (Verified Allergy, Unknown, 12/26/06) carvedilol (Verified Allergy, Unknown, 12/26/06) ciprofloxacin (Verified Allergy, Unknown, 05/15/18) clonidine (Verified Allergy, Unknown, 05/15/18) diltiazem (Verified Allergy, Unknown, 12/26/06) enalaprilat (Verified Allergy, Unknown, 12/26/06) felodipine (Verified Allergy, Unknown, 12/26/06) guanfacine (Verified Allergy, Unknown, 12/26/06) hydrochlorothiazide (Verified Allergy, Unknown, ITCHING, HEART ARRYTHMIA, 12/26/06) isosorbide (Verified Allergy, Unknown, 05/15/18) isradipine (Verified Allergy, Unknown, 12/26/06) labetalol (Verified Allergy, Unknown, 12/26/06) lisinopril (Verified Allergy, Unknown, 12/26/06) losartan (Verified Allergy, Unknown, 12/26/06) metoprolol (Verified Allergy, Unknown, 12/26/06) moexipril (Verified Allergy, Unknown, ITCHING, HEART ARRYTHMIA, 12/26/06) nifedipine (Verified Allergy, Unknown, 12/26/06) nitroglycerin (Verified Allergy, Unknown, 05/15/18) propafenone (Verified Allergy, Unknown, CHEST PAIN, 12/26/06) ramipril (Verified Allergy, Unknown, 12/26/06) rivaroxaban (Verified Allergy, Unknown, 05/15/18) verapamil (Verified Allergy, Unknown, 12/26/06) vitamin K2 (Verified Allergy, Unknown, 05/15/18) amlodipine (Verified Adverse Reaction, Unknown, "FLU-LIKE SYMPTOMS--DR SAID NOT TO TAKE", 12/26/06) hydralazine (Verified Adverse Reaction, Unknown, SEVERE BONE PAIN, ) lorazepam (Verified Adverse Reaction, Unknown, SEVERE DEPRESSION, 12/26/06 ) spironolactone (Verified Adverse Reaction, Unknown, BONE PAIN, 12/26/06) Vitals & I&Os Vital Signs Date Time Temp Pulse Resp B/P (MAP) Pulse Ox O2 Delivery O2 Flow Rate FiO2 05/25/18 12:00 98.2 90 18 112/72 (85) 97 Room Air General Appearance: Alert, Oriented X3, Cooperative, No Acute Distress HEENT: Atraumatic Respiratory: Normal Air Movement Extremities: No Clubbing, No Cyanosis, No Edema, Normal Pulses, No Tenderness/ Swelling Skin: No Rashes, No Breakdown Neuro: Normal Gait, Normal Speech, Strength at 5/5 X4 Ext, Normal Tone Psych/Mental Status: Mental Status NL Discharge Home Medications Reviewed and agree with Discharge Medication list on patient's Discharge Instruction sheet Condition at Discharge stable Instructions to Patient/Family Please see electronic discharge instructions given to patient. Clinical Quality Measures DVT/VTE Risk/Contraindication: Risk Factor Score Per Nursin RFS Level Per Nursing on Admit: 4+=Very High JEFFERSON GARCIA May 25, 2018 12:21
--- NOTE | 2018-05-25 14:14 | NUR ---
provided prayer and Communion.
--- NOTE | 2018-05-25 14:30 | NUR ---
WILLI GONZALEZ demonstrates understanding of discharge instructions and accurately returns instructions upon questioning. Copy of Post-Discharge Instructions given to PT. WILLI GONZALEZ is able to manage continuing needs after discharge. Patients belongings returned to PT. Patient discharged from [facility] on 05/25/18 [id number] . WILLI GONZALEZ left floor via W/C, accompanied by STAFF AND PER AUTO.
--- NOTE | 2018-05-25 15:34 | Occupational Therapy Eval ---
OT Evaluation-General/PLF Medical Diagnosis Admission Date May 22, 2018 at 10:20 Medical Diagnosis: stenosis/ L3-4 transforaminal lumbar interbody fusion Onset Date: May 24, 2018 Therapy Diagnosis Therapy Diagnosis: Weakness, decreased ADL skills Height/Weight Height (Feet): 5 Height (Inches): 4.00 Weight (Pounds): 113 Weight (Ounces): 8.0 Precautions Precautions/Isolations: Fall Prevention, Standard Precautions Safety Interventions: None Weight Bear Status Weight Bearing Restriction: Weight Bearing/Tolerated Pt. has back brace on and spinal precautions. Referral Physician: Devin Referral Reason: Activity Tolerance, Self Care, Evaluation/Treatment, Strengthening/ROM Medical History Pertinent Medical History: Smoking Additional Medical History Hypotension, anemia Current History Pt. had elective back surgery. Reviewed History: Yes Social History Home: Single Level Current Living Status: Spouse Entry Into Home: Stairs With Railing Steps Into Home: 3 ADL-Prior Level of Function Therapy Code Descriptions/Definitions Functional [place] Measure: 0=Not Assessed/NA 4=Minimal Assistance 1=Total Assistance 5=Supervision or Setup 2=Maximal Assistance 6=Modified [place] 3=Moderate Assistance 7=Complete [place] Therapy Quality Codes: 6 Independent with activity with or without an assistive device 5 Patient requires set up or clean up by helper. Patient completes activity by themselves 4 Supervision or touching assist (CGA). [place] provide cues , steadying assist 3 The helper provides less than half the effort to complete the activity 2 The helper provides more than half the effort to complete the activity 1 Dependent. The helper does all the effort to complete an activity 7 Patient refused to complete or attempt activity 9 The patient did not perform the activity before the current illness or injury 88 Not attempted due to Medical conditions or safety concerns Functional Abilities and Goals: Independent: Patient completed the activities by him/herself, with or without an assistive device, with no assistance from a helper. Needed Some Help: Patient needed partial assistance from another person to complete activities. Dependent: A helper completed the activities for the patient. Unknown: Not Applicable: ADL PLOF Comments Pt. was fully independent with daily tasks. 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 Functional Cognition: Independent DME/Equipment: Shower DME/Equipment Comments Pt. has a walker that she does not use. Drive Self: Yes OT Current Status Subjective Pt. reports pain but does not state pain number. Pt. states that she will have more pain medication in 20 minutes. Appearance Pt. up in chair. Alert and oriented. Pt. declines showering, but agrees to ambulate. Mental Status/Objective Patient Orientation: Person, Place, Time, Situation Attachments: Drains, IV Current Upper Extremity ROM WFL ADL-Treatment Therapy Code Descriptions/Definitions Functional [place] Measure: 0=Not Assessed/NA 4=Minimal Assistance 1=Total Assistance 5=Supervision or Setup 2=Maximal Assistance 6=Modified [place] 3=Moderate Assistance 7=Complete [place] Therapy Quality Codes: 6 Independent with activity with or without an assistive device 5 Patient requires set up or clean up by helper. Patient completes activity by themselves 4 Supervision or touching assist (CGA). [place] provide cues , steadying assist 3 The helper provides less than half the effort to complete the activity 2 The helper provides more than half the effort to complete the activity 1 Dependent. The helper does all the effort to complete an activity 7 Patient refused to complete or attempt activity 9 The patient did not perform the activity before the current illness or injury 88 Not attempted due to Medical conditions or safety concerns Lower Body Dressing (FIM): 5 (Pt. requires SBA to don house slippers. Pt. able to bring feet up to her, but has some difficulty with right foot. States that it is "weak.") Transfers (B, C, W/C) (FIM): 5 (SBA with walker. Pt. able to ambulate throughout halls, approximately 400 feet. Requires IV follow. Pt. also is educated on and practices bed transfer and log roll. Pt. is able to do this with no difficulty.) Pt. states that if she is still here tomorrow, that she would like to see AE to make LE dressing easier. Pt.tired today. Education OT Patient Education: Correct positioning, Modified ADL techniques, Progress toward Goal/Update tx plan, Purpose of tx/functional activities, Reviewed precautions, Rehab process, Transfer techniques Teaching Recipient: Patient Teaching Methods: Demonstration, Discussion Response to Teaching: Verbalize Understanding, Return Demonstration OT Short Term Goals Short Term Goals 1=Demonstrate adherence to instructed precautions during ADL tasks. 2=Patient will verbalize/demonstrate understanding of assistive devices/ modifications for ADL. 3=Patient will improve strength/tolerance for activity to enable patient to perform ADL's. OT Rn Utilization Management Um Goals Alf Goals Time Frame: May 26, 2018 Upper Body Dressing(FIM): 6 Lower Body Dressing(FIM): 6 Transfers (B,C,W/C) (FIM): 6 Additional Goals: 1-Demonstrate ADL Tasks, 2-Verbalize Understanding, 3- ImproveStrength/[place] 1=Demonstrate adherence to instructed precautions during ADL tasks. 2=Patient will verbalize/demonstrate understanding of assistive devices/ modifications for ADL. 3=Patient will improve strength/tolerance for activity to enable patient to perform ADL's. OT Education/Plan Problem List/Assessment Assessment: Decreased Activ Tolerance, Impaired I ADL's, Impaired Self-Care Skills Discharge Recommendations Plan/Recommendations: Continue POC Therapy D/C Recommendations: Home w/ Family Support Treatment Plan/Plan of Care Treatment,Training & Education: Yes Patient would benefit from OT for education, treatment and training to promote independence in ADL's, mobility, safety and/or upper extremity function for ADL' s. Plan of Care: ADL Retraining, Functional Mobility Treatment Duration: May 26, 2018 Frequency: 1 time per week Estimated Hrs Per Day: .25 hour per day Agreement: Yes Rehab Potential: Good Time/GCodes Start Time: 08:48 Stop Time: 09:20 Total Time Billed (hr/min): 32 Billed Treatment Time 1, EVL x 15minutes, FA x 17minutes MICHELLE DANIELS OT May 25, 2018 15:34
== END 2018-05-25 14:30 | disposition home or self-care (01) | DRG 454 ==
LOC: EDSTATUS 09:30 → 4TH 10:20 → SURG 10:21 → 4TH 16:01
PROVIDERS: ADMIT Orthopaedic Surgery; ATTEND Orthopaedic Surgery
PROC: 0SG0071 Fusion of Lumbar Vertebral Joint with Autologous Tissue Substitute, Posterior Approach, Posterior Column, Open Approach (ICD-10-PCS; 2018-05-22)
PROC: 0ST20ZZ Resection of Lumbar Vertebral Disc, Open Approach (ICD-10-PCS; 2018-05-22)
PROC: 0SG00A0 Fusion of Lumbar Vertebral Joint with Interbody Fusion Device, Anterior Approach, Anterior Column, Open Approach (ICD-10-PCS; principal; 2018-05-22 13:00)
DX: M48.062 Spinal stenosis, lumbar region with neurogenic claudication (principal); M43.16 Spondylolisthesis, lumbar region; D62 Acute posthemorrhagic anemia; D68.61 Antiphospholipid syndrome; F11.20 Opioid dependence, uncomplicated; E86.1 Hypovolemia; I95.89 Other hypotension; I10 Essential (primary) hypertension; E78.00 Pure hypercholesterolemia, unspecified; J30.2 Other seasonal allergic rhinitis; Z86.718 Personal history of other venous thrombosis and embolism; Z86.711 Personal history of pulmonary embolism; Z95.828 Presence of other vascular implants and grafts; Z86.73 Personal history of transient ischemic attack (TIA), and cerebral infarction without residual deficits; Z79.01 Long term (current) use of anticoagulants; Z88.8 Allergy status to other drugs, medicaments and biological substances; Z88.1 Allergy status to other antibiotic agents
CPT/HCPCS: 36415; 72100; 80053; 85014; 85018; 85025; 85027; 85610; 85730; 86850; 86900; 86901; 94664

== ENCOUNTER → 2020-02-04 | Outpatient (CLI) | payer BC ==
[~2020-02-04] MED LIST changes: +CATHETER FLUSH 10 ML SYR IV PRN; +HOLD METFORMIN - RECEIVED CONTRAST 20 ML VIAL IV SCH; +IOHEXOL 350 MG/ML 100 ML (OMNIPAQUE 350) VIAL IV ONE; +NS 100 ML (IVPB) BAG IV ONE; +OXYC1TAB12 PO
[2020-02-04 12:49] LABS: ALANINE AMINOTRANSFERASE 27 U/L (0-55); ALKALINE PHOSPHATASE 98 U/L (40-136); BILIRUBIN,TOTAL 0.2 MG/DL (0.1-1.0); BUN/CREATININE RATIO 16; CALCIUM 9.6 MG/DL (8.5-10.1); CARBON DIOXIDE 28 MMOL/L (21-32); CHLORIDE 104 MMOL/L (98-107); CREATININE SERUM 0.87 MG/DL (0.60-1.30); GFR ESTIMATED > 60; GLUCOSE 96 MG/DL (70-105); POTASSIUM 4.2 MMOL/L (3.6-5.0); SODIUM 141 MMOL/L (135-145); TOTAL PROTEIN 7.7 GM/DL (6.4-8.2)
[2020-02-04 12:50] LABS: ALBUMIN 4.7 GM/DL (3.2-4.5)
--- NOTE | 2020-02-04 13:40 | Diagnostic Imaging Report ---
PROCEDURE: CT abdomen with contrast only. TECHNIQUE: Multiple contiguous axial images were obtained through the abdomen after the administration of intravenous contrast. Auto Exposure Controls were utilized during the CT exam to meet ALARA standards for radiation dose reduction. INDICATION: Upper abdominal pain for two months. COMPARISON: No prior studies are available for comparison. FINDINGS: The lung bases are clear. No discrete liver mass is detected. Gallbladder is surgically absent. No biliary ductal dilatation is seen. The pancreas and spleen are unremarkable. No adrenal mass is identified. Kidneys are unremarkable. Aorta is non-aneurysmal. 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 Small and large bowel loops are normal caliber. There is no obstruction. There is no free fluid or fluid collection. Bony structures demonstrate postoperative changes of posterior instrumented fusion in the lumbar spine. IMPRESSION: Unremarkable CT abdomen study with contrast. No acute features detected. Dictated by: Dictated on workstation # [id number]
== END ==
LOC: RAD FS 12:12
PROVIDERS: ATTEND Family Medicine
DX: R10.10 Upper abdominal pain, unspecified (principal); R74.8 Abnormal levels of other serum enzymes
CPT/HCPCS: 36415; 74160; 80053

== ENCOUNTER → 2020-02-22 | Outpatient (CLI) | payer BC ==
[~2020-02-22] MED LIST changes: -CATHETER FLUSH 10 ML SYR IV PRN; -HOLD METFORMIN - RECEIVED CONTRAST 20 ML VIAL IV SCH; -IOHEXOL 350 MG/ML 100 ML (OMNIPAQUE 350) VIAL IV ONE; -NS 100 ML (IVPB) BAG IV ONE
--- NOTE | 2020-02-22 16:10 | Diagnostic Imaging Report ---
INDICATION: Intermittent right-sided headaches, history of TIAs. TECHNIQUE: Multiple contiguous axial images were obtained through the brain without the use of intravenous contrast. Auto Exposure Controls were utilized during the CT exam to meet ALARA standards for radiation dose reduction. COMPARISON: There is no previous CT available for comparison. FINDINGS: There were no extra-axial fluid collections. No intracranial hemorrhage. No intracranial mass or mass effect. No midline shift. The ventricles are normal in size and position. There were no focal parenchymal abnormalities in the brain. Calvarial windows were unremarkable. IMPRESSION: Negative noncontrast brain CT. Dictated by: Dictated on workstation # [id number]
== END ==
LOC: RAD FS 15:47
PROVIDERS: ATTEND Family Medicine
DX: G43.109 Migraine with aura, not intractable, without status migrainosus (principal); Z86.73 Personal history of transient ischemic attack (TIA), and cerebral infarction without residual deficits
CPT/HCPCS: 70450

== ENCOUNTER → 2021-01-23 | Outpatient (CLI) | payer BC, MEDICARE | LOC: CARD 13:00 | PROVIDERS: ATTEND Family Medicine | DX: I51.7 Cardiomegaly (principal); I36.1 Nonrheumatic tricuspid (valve) insufficiency | CPT/HCPCS: 93306 ==

== ENCOUNTER → 2021-12-31 | Outpatient (CLI) | payer MEDICARE, OTHER ==
--- NOTE | 2021-12-31 12:15 | Diagnostic Imaging Report ---
PROCEDURE: MRI lumbar spine without contrast. TECHNIQUE: Multiplanar, multisequence MRI of the lumbar spine was performed without contrast. INDICATION: Increasing low back pain with right leg radiculopathy. COMPARISON: 05/23/2018. FINDINGS: 5 lumbar type vertebral bodies are visualized with the last well-formed disc space designated L5-S1. No acute fracture or dislocation is seen in the lumbar spine. Alignment is anatomic. Posterior fusion changes are visualized at the L3 and L4 levels. Laminectomy has also been performed at L3 through L4. Vertebral body heights are well-maintained. The bone marrow signal is normal. The conus terminates at the L1 level. No masses are seen associated with the conus or nerve roots of the cauda equina. No epidural collections are identified. Multilevel degenerative changes are seen in the lumbar spine with disc bulges, facet hypertrophy, and buckling of the ligamentum flavum. T12-L1: No significant spinal canal or foraminal stenosis. L1-L2: No significant spinal canal or foraminal stenosis. L2-L3: Facet hypertrophy and buckling of ligamentum flavum results in [id number] spinal canal narrowing and [id number] bilateral foraminal narrowing. L3-L4: No significant spinal canal or foraminal stenosis. L4-L5: Facet hypertrophy and buckling of the ligamentum flavum results in no significant spinal canal stenosis and moderate right and mild left foraminal stenosis. L5-S1: Broad-based disc bulge, facet hypertrophy, and buckling of the ligamentum flavum results in mild spinal canal stenosis and mild bilateral foraminal stenosis. Paravertebral soft tissues are unremarkable. IMPRESSION: 1. No acute fracture or dislocation in the lumbar spine. 2. Multilevel degenerative changes in the lumbar spine, greatest at L2-L3, L4-L5 and L5-S1. 3. Posterior fusion and laminectomy from L3 through L4. Dictated by: Dictated on workstation # [id number]
== END ==
LOC: RAD 08:57
PROVIDERS: ATTEND Nurse Practitioner Family
DX: M47.26 Other spondylosis with radiculopathy, lumbar region (principal); M47.817 Spondylosis without myelopathy or radiculopathy, lumbosacral region; Z98.1 Arthrodesis status; Z90.89 Acquired absence of other organs
CPT/HCPCS: 72148

== ENCOUNTER → 2022-03-02 | Outpatient (CLI) | payer MEDICARE, OTHER ==
[2022-03-02 08:57] LABS: INR 0.9 (0.8-1.4); PROTHROMBIN TIME PATIENT 12.9 SEC (12.2-14.7)
== END ==
LOC: LABNPT 08:05
PROVIDERS: ATTEND Internal Medicine Medical Oncology
DX: D68.61 Antiphospholipid syndrome (principal)
CPT/HCPCS: 85610

== ENCOUNTER → 2022-03-13 | Outpatient (CLI) | payer MEDICARE, OTHER ==
[2022-03-13 11:05] LABS: INR 3.4 (0.8-1.4); PROTHROMBIN TIME PATIENT 34.3 SEC (12.2-14.7)
== END ==
LOC: LAB FS 10:30
PROVIDERS: ATTEND Nurse Practitioner Family
DX: D68.61 Antiphospholipid syndrome (principal)
CPT/HCPCS: 36415; 85610